=== PATIENT | male | born 1985 | race Caucasian/White ===

== ENCOUNTER 2020-02-21 10:33 | Emergency (ER) | payer OTHER ==
[2020-02-21] MEDS ORDERED: ONDANSETRON 4 MG (ODT) TAB ONE (11:15)
--- NOTE | 2020-02-21 11:43 | RAD REPORT ---
EXAM DESCRIPTION: Valeriy Single View02/21/2020 11:28 am CLINICAL HISTORY: cough COMPARISON: none FINDINGS: The lungs appear clear of acute infiltrate. The heart is normal size A line overlies the right chest. Is uncertain if it is overlying artifact or a central line. If it is a central line than the tip extends into the ivc
--- NOTE | 2020-02-21 12:20 | ER ---
Nurse's Notes [facility] Name: Jaime Reyes Age: 35 yrs Sex: Male : 1985 Arrival Date: 02/21/2020 Time: 10:34 Bed 19 Private MD: Diagnosis: Acute upper respiratory infection, unspecified;Nausea and vomiting;Diarrhea, unspecified Presentation: 02/20 10:34 Chief complaint: Patient states: Woke up this morning having trouble breathing, feeling ca1 hot. Reports cough since yesterday evening. Reports N/V/diarrhea since this morning. Coronavirus screen: Surgical mask placed on patient. Patient moved to private room, placed in contact and droplet isolation with eye protection until further assessment. Patient reports a cough. Patient reports shortness of breath or difficulty breathing. Patient denies measured and/or subjective temperature greater than 100.4F prior to today's visit. Patient denies travel on a cruise ship or to a country the [facility] currently lists as an affected area. Patient denies contact with known and/or suspected case of COVID-19. Ebola Screen: Patient negative for fever greater than or equal to 101.5 degrees Fahrenheit, and additional compatible Ebola Virus Disease symptoms Patient denies exposure to infectious person. Patient denies travel to an Ebola-affected area in the 21 days before illness onset. No symptoms or risks identified at this time. Initial Sepsis Screen: Does the patient meet any 2 criteria? No. Patient's initial sepsis screen is negative. Does the patient have a suspected source of infection? No. Patient's initial sepsis screen is negative. Risk Assessment: Do you want to hurt yourself or someone else? Patient reports no desire to harm self or others. Onset of symptoms was February 21, 2020. 10:34 Method Of Arrival: Ambulatory ca1 10:34 Acuity: ISADORA 3 ca1 Historical: - Allergies: 10:36 No Known Allergies; ca1 - Home Meds: 10:36 None [Active]; ca1 - PMHx: 10:36 None; ca1 - PSHx: 10:36 None; ca1 - Immunization history:: Adult Immunizations up to date. - Social history:: Smoking status: Patient reports the use of cigarette tobacco products, smokes one-half pack cigarettes per day. Screenin:47 Abuse screen: Denies threats or abuse. Denies injuries from another. Nutritional jl7 screening: No deficits noted. Tuberculosis screening: No symptoms or risk factors identified. Fall Risk None identified. Assessment: 11:10 General: Appears in no apparent distress. uncomfortable, ill, Behavior is calm, jl7 cooperative, appropriate for age. Pain: Denies pain. Neuro: Level of Consciousness is awake, alert, obeys commands, Oriented to person, place, time. Cardiovascular: Patient's skin is warm and dry. Rhythm is regular. Respiratory: Airway is patent Respiratory effort is even, unlabored, Respiratory pattern is regular, symmetrical, not auscultated. GI: Reports diarrhea, nausea, vomiting. : No signs and/or symptoms were reported regarding the genitourinary system. Derm: Skin is pink, warm \\T\\ dry. 12:00 Reassessment: Patient appears in no apparent distress at this time. Patient and/or jl7 family updated on plan of care and expected duration. Pain level reassessed. Patient is alert, oriented x 3, equal unlabored respirations, skin warm/dry/pink. Patient states symptoms have improved. 12:10 Reassessment: Pt given cup of water for PO challenge. jl7 12:35 Reassessment: Pt able to keep water down at this time. jl7 Vital Signs: 10:34 BP 148 / 98; Pulse 88; Resp 22 S; Temp 98(TE); Pulse Ox 97% on R/A; Weight 80.74 kg ca1 (R); Height 5 ft. 11 in. (180.34 cm) (R); 11:46 BP 138 / 96; Pulse 81; Resp 16; Pulse Ox 100% ; jl7 10:34 Body Mass Index 24.83 (80.74 kg, 180.34 cm) ca1 ED Course: 10:34 Patient arrived in ED. ag5 10:36 Triage completed. ca1 10:36 Arm band placed on right wrist. ca1 10:41 Kenan Medrano PA is PHCP. cp 10:41 Jak Molina MD is Attending Physician. cp 10:45 Leigh Ann Barker RN is Primary Nurse. jl7 11:28 XRAY Chest (1 view) In Process Unspecified. EDMS 11:40 Flu and/or RSV swab sent to lab. Strep swab sent to lab. COVID-19 swab sent to lab. jl7 11:47 Patient has correct armband on for positive identification. Bed in low position. Call jl7 light in reach. Side rails up X 1. Pulse ox on. NIBP on. 12:17 Throat Culture Sent. jl7 12:42 No provider procedures requiring assistance completed. Patient did not have IV access jl7 during this emergency room visit. Administered Medications: 11:10 Drug: Ondansetron (Zofran) 4 mg Route: PO; jl7 11:30 Follow up: Response: No adverse reaction; Nausea is decreased jl7 Outcome: 12:20 Discharge ordered by . jan 12:42 Discharged to home ambulatory. jl7 12:42 Condition: stable 12:42 Discharge instructions given to patient, Instructed on discharge instructions, follow up and referral plans. medication usage, Demonstrated understanding of instructions, follow-up care, medications, Prescriptions given X 3. 12:43 Patient left the ED. jl7 Addendum: 02/23/2020 10:34 Addendum: Other Attempted to contact pt regarding negative COVID-19 swab results. d m5 received message stating "the person you are trying to reach is not accepting calls at this time.". 02/27/2020 12:04 Addendum: Other Attempted to contact pt regarding negative COVID-19 swab results. d m5 Received message stating "the person you are trying to reach is not accepting calls at this time.". Signatures: Dispatcher [employer] Kanika Doran, RN RN dm5 Kenan Medrano PA PA cp Leal, Jahala, RN RN jl7 Tiffanie Arnold RN RN [facility] Rosy Chan 5
--- NOTE | 2020-02-21 12:20 | EDPHYS ---
Physician Documentation [facility] Name: Jaime Reyes Age: 35 yrs Sex: Male : 1985 Arrival Date: 02/21/2020 Time: 10:34 Bed 19 Private MD: ED Physician Jak Molina HPI: 02/20 11:02 This 35 yrs old Male presents to ER via Ambulatory with complaints of cp Breathing Difficulty. 11:02 The patient has shortness of breath at rest. Onset: The symptoms/episode began/occurred cp this morning. 11:02 Associated signs and symptoms: Pertinent positives: chest pain, non-productive cough, cp nausea, vomiting, diarrhea, Pertinent negatives: fever. Historical: - Allergies: 10:36 No Known Allergies; ca1 - Home Meds: 10:36 None [Active]; ca1 - PMHx: 10:36 None; ca1 - PSHx: 10:36 None; ca1 - Immunization history:: Adult Immunizations up to date. - Social history:: Smoking status: Patient reports the use of cigarette tobacco products, smokes one-half pack cigarettes per day. ROS: 11:05 Constitutional: Negative for body aches, chills, fever, poor PO intake. cp 11:05 Eyes: Negative for injury, pain, redness, and discharge. cp 11:05 ENT: Positive for sore throat, Negative for ear pain, difficulty swallowing, difficulty handling secretions. 11:05 Cardiovascular: Positive for chest pain, Negative for edema, palpitations. 11:05 Respiratory: Positive for cough, shortness of breath, Negative for wheezing. 11:05 Abdomen/GI: Positive for nausea, vomiting, and diarrhea, Negative for abdominal pain, constipation. 11:05 Skin: Negative for rash. 11:05 Neuro: Negative for altered mental status, headache, weakness. 11:05 All other systems are negative. Exam: 11:10 Constitutional: The patient appears in no acute distress, alert, awake, cp non-diaphoretic, non-toxic, well developed, well nourished. 11:10 Head/Face: Normocephalic, atraumatic. cp 11:10 Eyes: Periorbital structures: appear normal, Conjunctiva: normal, no exudate, no injection, Sclera: no appreciated abnormality, Lids and lashes: appear normal, bilaterally. 11:10 ENT: External ear(s): are unremarkable, Ear canal(s): are normal, clear, TM's: dullness, bilaterally, Nose: is normal, Mouth: Lips: moist, Oral mucosa: moist, Posterior pharynx: Airway: no evidence of obstruction, patent, Tonsils: no enlargement, no exudate, erythema, that is mild, exudate, is not appreciated. 11:10 Neck: ROM/movement: is normal, is supple, no meningismus, Lymph nodes: no appreciated lymphadenopathy. 11:10 Chest/axilla: Inspection: normal, Palpation: is normal, no crepitus, no tenderness. 11:10 Cardiovascular: Rate: normal, Rhythm: regular. 11:10 Respiratory: the patient does not display signs of respiratory distress, Respirations: normal, no use of accessory muscles, no retractions, labored breathing, is not present, Breath sounds: decreased breath sounds, are not appreciated, stridor, is not appreciated, + upper airway congestion. 11:10 Abdomen/GI: Inspection: abdomen appears normal, Palpation: abdomen is soft and non-tender, in all quadrants. Vital Signs: 10:34 BP 148 / 98; Pulse 88; Resp 22 S; Temp 98(TE); Pulse Ox 97% on R/A; Weight 80.74 kg ca1 (R); Height 5 ft. 11 in. (180.34 cm) (R); 11:46 BP 138 / 96; Pulse 81; Resp 16; Pulse Ox 100% ; jl7 10:34 Body Mass Index 24.83 (80.74 kg, 180.34 cm) ca1 MDM: 11:01 Patient medically screened. cp 11:10 Differential diagnosis: pneumonia, gastroenteritis, influenza, strep throat, COVID-19. cp 12:19 Data reviewed: vital signs, nurses notes, lab test result(s), and as a result, I will cp discharge patient. 12:19 Response to treatment: the patient's symptoms have markedly improved after treatment, cp VSS. Nausea improved and no vomiting observed while in ED, and as a result, I will discharge patient. 12:20 ED course: Patient instructed to self quarantine until COVID-19 testing is resulted. cp 02/20 11:02 Order name: Flu cp 02/20 11:02 Order name: Strep cp 02/20 11:04 Order name: Influenza Screen (A [facility] 02/20 11:05 Order name: COVID-19 jl7 02/20 11:58 Order name: Throat Culture [facility] 02/20 11:02 Order name: XRAY Chest (1 view) 02/20 11:02 Order name: Droplet/Contact Precautions; Complete Time: 11:21 02/20 11:02 Order name: Labs collected and sent; Complete Time: 11:21 02/20 11:02 Order name: O2 Per Protocol; Complete Time: 11:21 02/20 12:17 Order name: PO challenge; Complete Time: 12:25 cp Administered Medications: 11:10 Drug: Ondansetron (Zofran) 4 mg Route: PO; 7 11:30 Follow up: Response: No adverse reaction; Nausea is decreased jl7 Disposition: 16:16 Co-signature as Attending Physician, Jak Molina MD. ma2 Disposition: 02/21/20 12:20 Discharged to Home. Impression: Acute upper respiratory infection, unspecified, Nausea and vomiting, Diarrhea, unspecified. - Condition is Stable. - Discharge Instructions: Diarrhea, Adult, Nausea and Vomiting, Adult, Upper Respiratory Infection, Adult, Viral Respiratory Infection. - Prescriptions for Zofran 4 mg Oral Tablet - take 1 tablet by ORAL route every 12 hours As needed; 20 tablet. Tessalon Perles 100 mg Oral Capsule - take 2 capsule by ORAL route every 8 hours As needed; 30 capsule. Albuterol Sulfate 90 mcg/actuation - inhale 1-2 puff by INHALATION route every 4-6 hours; 1 Inhaler. - Work release form, Medication Reconciliation Form, Thank You Letter, Antibiotic Education, Prescription Opioid Use form. - Follow up: Private Physician; When: 2 - 3 days; Reason: Worsening of condition. - Problem is new. - Symptoms have improved. Signatures: Dispatcher [employer] [facility] Kenan Medrano PA PA cp Leal, Jahala, RN RN jl7 Alzahri, Mohammad, MD MD ma2 Tiffanie Arnold RN RN ca1 Corrections: (The following items were deleted from the chart) 12:43 12:20 02/21/2020 12:20 Discharged to Home. Impression: Acute upper respiratory jl7 infection, unspecified; Nausea and vomiting; Diarrhea, unspecified. Condition is Stable. Forms are Medication Reconciliation Form, Thank You Letter, Antibiotic Education, Prescription Opioid Use. Follow up: Private Physician; When: 2 - 3 days; Reason: Worsening of condition. Problem is new. Symptoms have improved. cp
[2020-02-21 12:49] VITALS: TEMP 98
[2020-02-21 12:50] VITALS: BP 138/96; O2SAT 100
== END 2020-02-21 12:43 | disposition home or self-care (01) ==
LOC: ER 10:33
DX: J06.9 Acute upper respiratory infection, unspecified (principal); Z20.828 Contact with and (suspected) exposure to other viral communicable diseases; R11.2 Nausea with vomiting, unspecified; R19.7 Diarrhea, unspecified; F17.210 Nicotine dependence, cigarettes, uncomplicated
CPT/HCPCS: 87070; 87081; 87804 ×2; 71045; 99284; U0001

== ENCOUNTER 2020-12-06 22:45 | Emergency (ER) | payer SELFPAY ==
[2020-12-07] MEDS ORDERED: LIDOCAINE 1% W/EPI 1:100,000 MDV 50 ML VIAL ONE (00:04)
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
[2020-12-07 15:55] VITALS: BP 106/76; TEMP 98.4; O2SAT 99
== END 2020-12-07 00:45 | disposition home or self-care (01) ==
LOC: ER 22:45
PROC: 0JQP0ZZ Repair Left Lower Leg Subcutaneous Tissue and Fascia, Open Approach (ICD-10-PCS; principal; 2020-12-07)
DX: S81.812A Laceration without foreign body, left lower leg, initial encounter (principal); W26.0XXA Contact with knife, initial encounter; Y93.9 Activity, unspecified; Y92.009 Unspecified place in unspecified non-institutional (private) residence as the place of occurrence of the external cause
CPT/HCPCS: 99281

== ENCOUNTER 2021-01-02 08:03 | Emergency (ER) | payer SELFPAY ==
--- NOTE | 2021-01-02 09:38 | EDPHYS ---
Physician Documentation [facility] Name: Jaime Reyes Age: 35 yrs Sex: Male : 1985 Arrival Date: 01/02/2021 Time: 08:06 Bed 23 Private MD: ED Physician Kenan Danielson HPI: 01/02 09:34 This 35 yrs old Male presents to ER via Ambulatory with complaints of jmm Breathing Difficulty, Diarrhea, Headache. 09:34 The patient has shortness of breath at rest. Onset: The symptoms/episode began/occurred jmm gradually, 3 day(s) ago. Duration: The symptoms are continuous. The patient's shortness of breath is aggravated by nothing, is alleviated by nothing. This is a 35 year old male with a history of schizophrenia that presents to the ED with complaints of cough with chest pain, diarrhea beginning approx 3 days ago. Patient states he was exposed to covid. . Historical: - Allergies: 08:22 No Known Allergies; tw2 - Home Meds: 08:22 Depakote Oral [Active]; Trazodone Oral [Active]; tw2 - PMHx: 08:22 Bipolar disorder; Schizophrenia; tw2 - PSHx: 08:22 None; tw2 - Immunization history:: Adult Immunizations. - Social history:: Smoking status: . ROS: 09:34 Constitutional: Positive for body aches, chills. jmm 09:34 Cardiovascular: Positive for chest pain, with cough. 09:34 Respiratory: Positive for cough. 09:34 Abdomen/GI: Positive for diarrhea. 09:34 Abdomen/GI: Negative for abdominal pain, nausea and vomiting. 09:34 All other systems are negative. Exam: 09:34 Constitutional: This is a well developed, well nourished patient who is awake, alert, jmm and in no acute distress. Head/Face: atraumatic. Eyes: EOMI, no conjunctival erythema appreciated ENT: Moist Mucus Membranes Neck: Trachea midline, Supple Chest/axilla: Normal chest wall appearance and motion. Cardiovascular: Regular rate and rhythm. No edema appreciated Respiratory: Normal respirations, no respiratory distress appreciated Abdomen/GI: Non distended, soft Back: Normal ROM Skin: General appearance color normal MS/ Extremity: Moves all extremities, no obvious deformities appreciated, no edema noted to the lower extremities Neuro: Awake and alert, normal gait Psych: Behavior is normal, Mood is normal, Patient is cooperative and pleasant Vital Signs: 08:09 BP 137 / 100; Pulse 83; Resp 17; Temp 98.1(O); Pulse Ox 100% on R/A; Weight 74.84 kg tw2 (R); Height 5 ft. 11 in. (180.34 cm); 08:09 Body Mass Index 23.01 (74.84 kg, 180.34 cm) tw2 MDM: 09:01 Patient medically screened. [place] 09:01 Patient medically screened. [place] 09:37 Data reviewed: vital signs, nurses notes. Counseling: I had a detailed discussion with erwin the patient and/or guardian regarding: the historical points, exam findings, and any diagnostic results supporting the discharge/admit diagnosis, the need for outpatient follow up, to return to the emergency department if symptoms worsen or persist or if there are any questions or concerns that arise at home. ED course: Patient is alert and non toxic in appearance in the ED. No signs of resp distress. Patient is advised to follow up with pcp and otherwise given strict return precautions. Patient understood and agrees with the plan of care. . 01/02 09:34 Order name: Flu [facility] 01/02 09:34 Order name: Influenza Screen (A EDVA Administered Medications: No medications were administered Disposition: 11:48 Co-signature as Attending Physician, Kenan Danielson MD I agree with the assessment and [place] plan of care. Disposition: 01/02/21 09:38 Discharged to Home. Impression: Acute upper respiratory infection, unspecified. - Condition is Stable. - Discharge Instructions: COVID-19. - Medication Reconciliation Form, Thank You Letter, Antibiotic Education, Prescription Opioid Use, Work release form form. - Follow up: Private Physician; When: 2 - 3 days; Reason: Recheck today's complaints, Continuance of care, Re-evaluation by your physician. Signatures: Dispatcher [employer] Kenan Yin MD MD cha Mickail, Joel, PA PA jmm Smirch, Shelby, LASHELL RN Aiyana Mancilla RN RN tw2 Corrections: (The following items were deleted from the chart) 08:59 08:19 CORONAVIRUS+MR.LAB.BRZ ordered. JULIOVA ASHWIN 09:48 09:38 01/02/2021 09:38 Discharged to Home. Impression: Acute upper respiratory ss infection, unspecified. Condition is Stable. Forms are Work release form, Medication Reconciliation Form, Thank You Letter, Antibiotic Education, Prescription Opioid Use. Follow up: Private Physician; When: 2 - 3 days; Reason: Recheck today's complaints, Continuance of care, Re-evaluation by your physician. erwin
--- NOTE | 2021-01-02 09:38 | ER ---
Nurse's Notes [facility] Name: Jaime Reyes Age: 35 yrs Sex: Male : 1985 Arrival Date: 01/02/2021 Time: 08:06 Bed 23 Private MD: Diagnosis: Acute upper respiratory infection, unspecified Presentation: 01/02 08:09 Chief complaint: Patient states: c/o headaches, diarrhea, sob that started 2-3 days tw2 ago. Coronavirus screen: cough unrelated to allergies, diarrhea, difficulty breathing, headache, muscle pain, nausea, loss of taste or smell, Client presents with at least one sign or symptom that may indicate coronavirus-19. Standard/surgical mask placed on the client. Provider contacted for isolation considerations. Ebola Screen: Patient denies travel to an Ebola-affected area in the 21 days before illness onset. Initial Sepsis Screen: Does the patient meet any 2 criteria? No. Patient's initial sepsis screen is negative. Does the patient have a suspected source of infection? No. Patient's initial sepsis screen is negative. Risk Assessment: Do you want to hurt yourself or someone else? Patient reports no desire to harm self or others. Onset of symptoms was January 02, 2021. 08:09 Method Of Arrival: Ambulatory tw2 08:09 Acuity: ISADORA 4 tw2 08:22 Note pt laughing with significant other and states "well if she is getting testing ginna tw2 go check myself in too. i need a note for parole". Triage Assessment: 08:22 General: Appears in no apparent distress. slender, Behavior is calm, cooperative, tw2 appropriate for age. Pain: Complains of pain in body aches. Respiratory: Reports shortness of breath cough that is Onset: The symptoms/episode began/occurred 2-3 days ago, the patient has mild shortness of breath. Historical: - Allergies: 08:22 No Known Allergies; tw2 - Home Meds: 08:22 Depakote Oral [Active]; Trazodone Oral [Active]; tw2 - PMHx: 08:22 Bipolar disorder; Schizophrenia; tw2 - PSHx: 08:22 None; tw2 - Immunization history:: Adult Immunizations. - Social history:: Smoking status: . Screenin:24 Abuse screen: Denies threats or abuse. Nutritional screening: No deficits noted. tw2 Tuberculosis screening: No symptoms or risk factors identified. Fall Risk None identified. Assessment: 08:09 Respiratory: Airway is patent Respiratory effort is even, unlabored, Respiratory tw2 pattern is regular, symmetrical. 09:36 General: Appears in no apparent distress. Behavior is calm, cooperative, Reports fever ss for 2-3 days, feeling ill for 2-3 days, fatigue for >3 days. Neuro: Level of Consciousness is awake, alert, obeys commands, Oriented to person, place, time, situation. Cardiovascular: Capillary refill < 3 seconds is brisk in bilateral fingers Rhythm is regular. Respiratory: Reports mild shortness of breath on exertion Airway is patent Respiratory effort is even, unlabored, Respiratory pattern is regular, symmetrical, Breath sounds are clear bilaterally. GI: Reports diarrhea, since x 2-3 days. EENT: Oral mucosa is moist. Throat is clear. Derm: Skin is pink, warm \\T\\ dry. normal. Musculoskeletal: Circulation, motion, and sensation intact. Range of motion: intact in all extremities, Swelling absent. Vital Signs: 08:09 BP 137 / 100; Pulse 83; Resp 17; Temp 98.1(O); Pulse Ox 100% on R/A; Weight 74.84 kg tw2 (R); Height 5 ft. 11 in. (180.34 cm); 08:09 Body Mass Index 23.01 (74.84 kg, 180.34 cm) tw2 ED Course: 08:06 Patient arrived in ED. mr 08:10 Triage completed. tw2 08:23 Arm band placed on. tw2 09:00 Kenan Danielson MD is Attending Physician. [facility] 09:00 Bed in low position. Call light in reach. tw2 09:27 Nba Lorenzo PA is PHCP. [facility] 09:36 Hollie Canales, LASHELL is Primary Nurse. 09:36 No provider procedures requiring assistance completed. Patient did not have IV access ss during this emergency room visit. Administered Medications: No medications were administered Outcome: 09:38 Discharge ordered by . [facility] 09:48 Discharged to home ambulatory. ss 09:48 Condition: good 09:48 Discharge instructions given to patient, Instructed on discharge instructions, follow up and referral plans. Demonstrated understanding of instructions, follow-up care. 09:48 Patient left the ED. ss Signatures: Kenan Danielson MD MD cha Mickail, Joel, PA PA jmm Rivera, Mary mr Hollie Canales, RN RN ss Aiyana Wesley RN RN tw2
[2021-01-02 09:52] VITALS: BP 137/100; TEMP 98.1; O2SAT 100
[2021-01-02 09:53] LABS: SARS-COV-2 RT PCR POSITIVE (NEGATIVE)
== END 2021-01-02 09:48 | disposition home or self-care (01) ==
LOC: ER 08:03
DX: U07.1 COVID-19 (principal); J06.9 Acute upper respiratory infection, unspecified; F20.9 Schizophrenia, unspecified
CPT/HCPCS: 0240U; 87804; 99281; U0003

== ENCOUNTER 2021-05-14 11:19 | Emergency (ER) | payer SELFPAY ==
--- NOTE | 2021-05-14 15:15 | EDPHYS ---
Physician Documentation [facility] Name: Jaime Reyes Age: 36 yrs Sex: Male : 1985 Arrival Date: 05/14/2021 Time: 11:21 Bed 18 Private MD: ED Physician Rolan Cox HPI: 05/14 12:33 This 36 yrs old Male presents to ER via Ambulatory with complaints of r/o kb covid. 12:33 The patient or guardian reports difficulty breathing, flu symptoms, myalgias. The kb patient has not recently seen a physician. 12:33 Onset: The symptoms/episode began/occurred 2 day(s) ago. Severity of symptoms: At their kb worst the symptoms were mild, moderate, in the emergency department the symptoms are unchanged. Modifying factors: The symptoms are alleviated by nothing, the symptoms are aggravated by nothing. Associated signs and symptoms: The patient has no apparent associated signs or symptoms. The patient has not experienced similar symptoms in the past. Pt reports shortness of breath and bodyaches for 2 days. States his family members have covid. Historical: - Allergies: 11:49 No Known Allergies; iw - Immunization history:: Client reports having NOT received the Covid vaccine. - Social history:: Smoking status: unknown. ROS: 12:33 Abdomen/GI: Negative for abdominal pain, nausea, vomiting, diarrhea, and constipation. kb 12:33 Constitutional: Positive for body aches, malaise. 12:33 Respiratory: Positive for shortness of breath. 12:33 All other systems are negative. Exam: 12:33 Constitutional: This is a well developed, well nourished patient who is awake, alert, kb and in no acute distress. Head/Face: Normocephalic, atraumatic. ENT: Moist Mucous membranes Cardiovascular: Regular rate and rhythm with a normal S1 and S2. No gallops, murmurs, or rubs. No pulse deficits. Respiratory: Respirations even and unlabored. No increased work of breathing, no retractions or nasal flaring. Skin: Warm, dry with normal turgor. Normal color. MS/ Extremity: Pulses equal, no cyanosis. Neurovascular intact. Full, normal range of motion. Neuro: Awake and alert, GCS 15, oriented to person, place, time, and situation. Moves all extremities. Normal gait. Psych: Awake, alert, with orientation to person, place and time. Behavior, mood, and affect are within normal limits. Vital Signs: 11:47 BP 133 / 85; Pulse 82; Resp 16; Temp 97.7; Pulse Ox 100% on R/A; iw 13:00 BP 127 / 81; Pulse 85; Resp 17; Pulse Ox 99% ; bp 15:00 BP 131 / 79; Pulse 79; Resp 17; Temp 97.9; Pulse Ox 100% ; bp MDM: 11:46 Patient medically screened. kb 12:32 Data reviewed: vital signs, nurses notes. Data interpreted: Pulse oximetry: on room air kb is 100 %. Interpretation: normal. Counseling: I had a detailed discussion with the patient and/or guardian regarding: the historical points, exam findings, and any diagnostic results supporting the discharge/admit diagnosis, lab results, the need for outpatient follow up, a family practitioner, to return to the emergency department if symptoms worsen or persist or if there are any questions or concerns that arise at home. 05/14 14:05 Order name: SARS-COV-2 RT PCR; Complete Time: 14:07 [facility] 05/14 14:07 Order name: Chest Single View XRAY; Complete Time: 15:29 kb Administered Medications: No medications were administered Disposition: 15:39 Co-signature as Attending Physician, Rolan Cox MD I agree with the assessment and rn plan of care. Attestation: The patient's history, exam findings, diagnostics, and a summary of any interventions or procedures was reviewed in detail with Krista NEWSOME. Disposition Summary: 05/14/21 15:14 Discharge Ordered Location: Home kb Condition: Stable kb Diagnosis - Acute upper respiratory infection, unspecified kb Followup: kb - With: Emergency Department - When: As needed - Reason: Worsening of condition Followup: kb - With: Private Physician - When: 2 - 3 days - Reason: Recheck today's complaints, Continuance of care, Re-evaluation by your physician Discharge Instructions: - Discharge Summary Sheet kb - Upper Respiratory Infection, Adult, [id number] kb - Viral Respiratory Infection, [id number] kb Forms: - Medication Reconciliation Form kb - Thank You Letter kb - Antibiotic Education kb - Prescription Opioid Use kb Signatures: Dispatcher [employer] EDAK Krista Baron FNP-C FNP-Adriana Zapienne, RN Rolan Thakkar MD MD rn Peltier, Scotty, LASHELL RN bp Corrections: (The following items were deleted from the chart) 13:01 11:50 CORONAVIRUS+ ordered. EDMS EDMS
--- NOTE | 2021-05-14 15:15 | ER ---
Nurse's Notes [facility] Name: Jaime Reyes Age: 36 yrs Sex: Male : 1985 Arrival Date: 05/14/2021 Time: 11:21 Bed 18 Private MD: Diagnosis: Acute upper respiratory infection, unspecified Presentation: 05/14 11:47 Chief complaint: Patient states: body aches, SOB X 2 days, exposed to COVID at home. iw Coronavirus screen: Ebola Screen: Patient negative for fever greater than or equal to 101.5 degrees Fahrenheit, and additional compatible Ebola Virus Disease symptoms Patient denies exposure to infectious person. Patient denies travel to an Ebola-affected area in the 21 days before illness onset. No symptoms or risks identified at this time. Initial Sepsis Screen: Does the patient meet any 2 criteria? No. Patient's initial sepsis screen is negative. Does the patient have a suspected source of infection? No. Patient's initial sepsis screen is negative. Risk Assessment: Do you want to hurt yourself or someone else? Patient reports no desire to harm self or others. Onset of symptoms was May 12, 2021. 11:47 Method Of Arrival: Ambulatory iw 11:47 Acuity: ISADORA 4 iw Triage Assessment: 12:00 General: Appears in no apparent distress. comfortable, slender, Behavior is bp cooperative, appropriate for age, anxious. Pain: Denies pain. EENT: No deficits noted. Neuro: No deficits noted. Cardiovascular: No deficits noted. Respiratory: Airway is patent Respiratory effort is even, unlabored. GI: No signs and/or symptoms were reported involving the gastrointestinal system. : No deficits noted. Derm: No deficits noted. Musculoskeletal: No deficits noted. Historical: - Allergies: 11:49 No Known Allergies; iw - Immunization history:: Client reports having NOT received the Covid vaccine. - Social history:: Smoking status: unknown. Screenin:00 Abuse screen: Denies threats or abuse. Denies injuries from another. Nutritional bp screening: No deficits noted. Tuberculosis screening: No symptoms or risk factors identified. Fall Risk None identified. Assessment: 12:00 General: SEE TRIAGE NOTE. bp 13:00 Reassessment: No changes from previously documented assessment. Patient and/or family bp updated on plan of care and expected duration. Pain level reassessed. 15:00 Reassessment: PT D/C HOME AMBULATORY, DX WITH VIRAL ILLNESS. bp Vital Signs: 11:47 BP 133 / 85; Pulse 82; Resp 16; Temp 97.7; Pulse Ox 100% on R/A; iw 13:00 BP 127 / 81; Pulse 85; Resp 17; Pulse Ox 99% ; bp 15:00 BP 131 / 79; Pulse 79; Resp 17; Temp 97.9; Pulse Ox 100% ; bp ED Course: 11:21 Patient arrived in ED. as 11:46 Krista Baron FNP-C is PHCP. kb 11:46 Rolan Cox MD is Attending Physician. kb 11:48 Triage completed. iw 12:00 Arm band placed on. bp 12:04 Scotty Meyer, RN is Primary Nurse. bp 13:00 Patient has correct armband on for positive identification. Bed in low position. Call bp light in reach. Side rails up X2. 15:00 No provider procedures requiring assistance completed. Patient did not have IV access bp during this emergency room visit. 15:03 Chest Single View XRAY In Process Unspecified. EDMS Administered Medications: No medications were administered Outcome: 15:14 Discharge ordered by MD. kb 15:20 Discharged to home ambulatory. bp 15:20 Condition: stable 15:20 Discharge instructions given to patient, Instructed on discharge instructions, follow up and referral plans. Demonstrated understanding of instructions, follow-up care. 15:29 Patient left the ED. bp Signatures: Dispatcher [employer] EDMS Krista Baron FNP-C FNP-Ckb Martinez, Amelia as Shirley Jang RN RN Scotty Meyer, RN RN bp Corrections: (The following items were deleted from the chart) 15:27 15:24 General: SEE TRIAGE NOTE. bp bp
--- NOTE | 2021-05-14 15:27 | RAD REPORT ---
EXAM DESCRIPTION: RAD - Chest Single View - 05/14/2021 3:04 pm CLINICAL HISTORY: DYSPNEA COMPARISON: January 2020 TECHNIQUE: AP portable chest image was obtained 05/14/2021 3:04 pm . FINDINGS: Lungs are clear. Heart and vasculature are normal. No measurable pleural effusion and no p neumothorax. No acute bony abnormality seen. No acute aortic findings suspected. IMPRESSION: No acute cardiopulmonary process. No significant change from comparison study.
[2021-05-14 15:38] VITALS: BP 131/79; TEMP 97.9; O2SAT 100
== END 2021-05-14 15:29 | disposition home or self-care (01) ==
LOC: ER 11:19
DX: J06.9 Acute upper respiratory infection, unspecified (principal); Z20.822 Contact with and (suspected) exposure to COVID-19
CPT/HCPCS: 71045; 99283; U0003